=== PATIENT | female | born 1980 | race Two or more races ===

== ENCOUNTER 2023-10-08 19:16 | Emergency (ER) | payer OTHER ==
[2023-10-08 19:31] VITALS: BP 153/93; O2SAT 100
--- NOTE | 2023-10-08 19:54 | ED Physician Documentation ---
History of Present Illness - Stated complaint Stated Complaint: NOSE LAC - Chief complaint Chief Complaint: Laceration - History obtained from History obtained from: Patient - History of Present Illness Timing: Today Pain level max: 3 Pain level now: 3 - Additonal information Additional information: Patient is a 43-year-old female who states that she was putting her crockpot away when the lid fell off and hit her in the nose. She complains of a laceration to the bridge of the nose. No loss of consciousness. No epistaxis. No vomiting. No seizure activity. Does not take any blood thinners. Tetanus up-to-date. No other injuries. No neck or back pain. Denies any possibility of . 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 - Present Medications Home Medications: Ambulatory Orders Medication Instructions Recorded Confirmed No Known Home Medications 10/08/23 10/08/23 - Allergies Allergies/Adverse Reactions: Allergies Allergy/AdvReac Type Severity Reaction Status Date / Time No Known Drug Allergies Allergy Verified 10/08/23 19:28 - Social History Does the pt smoke?: No Smoking Status: Never smoker Does the pt drink ETOH?: No Does the pt have substance abuse?: No - Immunizations Immunizations are current?: Yes - POLST Patient has POLST: No PD ED PE NORMAL - Vitals Vital signs reviewed: Yes - General General: Alert and oriented X 3, No acute distress - HEENT HEENT: PERRL, EOMI, Moist mucous membranes, Other (1 cm linear superficial laceration to the bridge of the nose. No active bleeding. No deformity. No septal hematoma. No scalp hematomas. 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, No motor deficit, No sensory deficit, Normal speech Eye Opening: Spontaneous Motor: Obeys Commands Verbal: Oriented GCS Score: 15 - Psych Psych: Normal mood, Normal affect Results - Vitals Vitals: Vital Signs - 24 hr 10/08/23 10/08/23 19:24 19:56 Temperature 36.9 C 36.9 C Heart Rate 77 77 Respiratory 16 16 Rate Blood Pressure 153/93 H 153/93 H O2 Saturation 100 100 Oxygen O2 Source Room air Procedures - Laceration (location) nasal bridge Length in cm: 1 Wound type: Linear, Clean Neurovascular status: Sensory intact, Motor intact, Vascular intact Wound preparation: Irrigated copiously NS, Wound explored, To the base Skin layer closure: Dermabond Other: Patient tolerated well, No complications, Neurovascular intact, Tetanus UTD PD Medical Decision Making - ED course Complexity details: considered differential, d/w patient ED course: Laceration repaired. Tolerated well. No loss of consciousness. No scalp hematomas. No palpable skull fractures. No cervical spine tenderness. No indication for head CT. Patient counseled regarding signs and symptoms for which I believe and urgent re-evaluation would be necessary. Patient with good understanding of and agreement to plan and is comfortable going home at this time This document was made in part using voice recognition software. While efforts are made to proofread this document, sound alike and grammatical errors may occur. Departure - Departure Disposition: 01 Home, Self Care Clinical Impression: Nasal laceration Qualifiers: Encounter type: initial encounter Qualified Code(s): S01.21XA - Laceration without foreign body of nose, initial encounter Condition: Good Instructions: ED Laceration Facial Skin Glue Follow-Up: your,doctor as needed [Other] Comments: As we discussed, the glue will fall off on its own, do not apply any ointment as this will dissolve the glue. Please return for worsening headaches, vomiting, seizure activity or other new or worrisome symptoms. Forms: PCP List Discharge Date/Time: 10/08/23 19:58
== END 2023-10-08 19:58 | disposition home or self-care (01) ==
LOC: ED 19:16
DX: S01.21XA Laceration without foreign body of nose, initial encounter (principal); W20.8XXA Other cause of strike by thrown, projected or falling object, initial encounter
CPT/HCPCS: 12011; 99283